=== PATIENT | female | born 1935 | race Caucasian/White ===

== ENCOUNTER 2017-03-04 09:39 | Emergency (ER) | payer OTHER ==
[~2017-03-04] VITALS: Ht 167.6 cm; Wt 64.4 kg
[~2017-03-04 09:39] MED LIST: ASPI81TA82 PO; B-12500T3 PO; COQ150CA PO; METO25 PO; PERC5TAB12 PO; PRAV10 PO; SYNT125T PO; TIZA4CAP PO
[2017-03-04 09:50] VITALS: BP 147/72; PULSE 74; RESP 16; TEMP 97.5; O2SAT 99
[2017-03-04] MEDS ORDERED: SYNT112T PO (10:08)
[2017-03-04] MEDS ORDERED: BENA25TA3 PO (10:08)
[2017-03-04] MEDS ORDERED: METO25TA6 PO (10:08)
[2017-03-04] MEDS ORDERED: DOXY1CAP91 PO (10:08)
[2017-03-04] MEDS ORDERED: ASPI-110 PO (10:08)
[2017-03-04] MEDS ORDERED: PRAV10TA PO (10:08)
[2017-03-04] MEDS ORDERED: VIST25CA PO (10:11)
--- NOTE | 2017-03-04 10:12 | PD ---
HPI . Rash Chief Complaint: Allergic/Adverse Reaction Time Seen by Provider: 10:05 Travel History International Travel<30 days: No Contact w/Intl Traveler<30days: No Traveled to known affect area: No History of Present Illness HPI Patient presents with a pruritic rash which started this morning. She states that she noticed it on her back on awakening. She did take some Benadryl that time. She states that she took 25 mg and lay back down. When she awakened, the rash had spread. She subsequently presents to us for evaluation. She denies any associated shortness of breath, throat swelling or nausea/vomiting. The rash is probably secondary to doxycycline which she is taking for bug bites. She describes the itching as severe. PFSH Past Medical History Hx Anticoagulant Therapy: Yes (asa 81mg) Cancer: Yes (skin) Cardiovascular Problems: Yes (hx of htn on meds, hx of heart racing) High Cholesterol: Yes Chemotherapy: No Cerebrovascular Accident: No Diabetes: No Diminished Hearing: No Hypertension: Yes Respiratory: No Immunizations Current: No Thyroid Disease: Yes (hypothyroid) ?: Not Menopausal: Yes Past Surgical History Appendectomy: Yes Cardiac Surgery: Yes (ABLATION) Cholecystectomy: Yes Eye Surgery: Yes (OU CATARACTS) Hysterectomy: Yes Tonsillectomy: Yes (and adenoids) Other Surgery: Yes (Skin surgery - for cancer) Social History Alcohol Use: No Tobacco Use: No Substance Use: No Allergies-Medications (Allergen,Severity, Reaction): Coded Allergies: Doxycycline (Verified Allergy, Intermediate, skin rash, 03/04/17) *MDRO Multi-Drug Resistant Organism (Verified Adverse Reaction, Unknown, ) 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 Reported Meds & Prescriptions Reported Meds & Active Scripts Active Percocet 5-325 mg (Oxycodone/Acetaminophen) 1 Tab 1 Tab PO Q6H PRN Reported Tizanidine Hcl (Tizanidine HCl) 4 Mg Tab 4 Mg PO Q8H PRN Pravastatin Sodium 10 Mg Tab 1 Tab PO HS Metoprolol Tartrate 25 mg (Metoprolol Tartrate) 25 Mg Tab 25 Mg PO DAILY B-12 (Cyanocobalamin) 500 Mcg Tab 500 Mcg PO DAILY Synthroid 125 mcg (Levothyroxine Sodium) 125 Mcg Tab 125 Mcg PO DAILY Coq10 (Coenzyme Q10) 50 Mg Cap 100 Mg PO HS Aspir-81 (Aspirin) 81 Mg Tab 81 Mg PO HS Review of Systems Except as stated in HPI: all other systems reviewed are Neg Respiratory: No: Shortness of Breath Gastrointestinal: No: Nausea, Vomiting Skin: Positive Rash, Positive Itching Physical Exam Narrative GENERAL: Awake and alert and in no acute distress. SKIN: Diffuse urticarial rash which is worse on her back. I do not see any skin lesions worrisome for cellulitis. HEAD: Atraumatic. Normocephalic. No edema or pharynx. EYES: Pupils equal and round. NECK: Trachea midline. CARDIOVASCULAR: Regular rate and rhythm. RESPIRATORY: No accessory muscle use. Lungs are clear with full air movement throughout. MUSCULOSKELETAL: No obvious deformities. No edema. NEUROLOGICAL: Awake and alert. No obvious cranial nerve deficits. Motor grossly within normal limits. Normal speech. PSYCHIATRIC: Appropriate mood and affect; insight and judgment normal. Data Data Last Documented VS Vital Signs Date Time Temp Pulse Resp B/P Pulse Ox O2 Delivery O2 Flow Rate FiO2 03/04/17 09:50 97.5 74 16 147/72 99 MDM Medical Decision Making Medical Screen Exam Complete: Yes Emergency Medical Condition: Yes Differential Diagnosis The differential diagnosis of the skin rash includes but is not limited to allergic urticaria, scabies, insect bites, contact dermatitis Narrative Course Patient presents with a pruritic rash which started this morning. It looks like a typical drug rash. I will have her stop the doxycycline. She drove herself here so she will be given oral Vistaril to take when she gets home. Diagnosis Primary Impression: Urticaria Patient Instructions: General Instructions, Urticaria (ED) Additional Instructions: Stop the doxycycline Med/Other Pt SpecificInfo: Prescription(s) given Scripts Hydroxyzine Pamoate (Vistaril)25 Mg Cap75 Mg PO Q6H PRN (RASH) #30 CAP Ref 0 Prov:Lluvia Robbins MD 03/04/17 Disposition: 01 DISCHARGE HOME Condition: Stable Lluvia Robbins MD March 04, 2017 10:12
== END 2017-03-04 10:45 | disposition home or self-care (01) ==
LOC: PHEFT 09:39
DX: L50.9 Urticaria, unspecified (principal); E03.9 Hypothyroidism, unspecified; I10 Essential (primary) hypertension; E78.00 Pure hypercholesterolemia, unspecified; Z79.82 Long term (current) use of aspirin
CPT/HCPCS: 99282